=== PATIENT | female | born 1950 | race Caucasian/White ===

== ENCOUNTER 2017-11-26 12:19 | Emergency (ER) | payer OTHER, MEDICARE ==
[2017-11-26 12:30] VITALS: BP 141/88; PULSE 74; TEMP 98.1; O2SAT 95
--- NOTE | 2017-11-26 12:52 | C.PDOC ---
Patient is a 67 year old female with past medical history of HTN, HLD and hypothyroidism, who presents to the ED with complaints of left shoulder pain that started approximately a week ago. Patient notes that the pain starts from her neck and into her left upper arm. Patient denies decrease in range of motion but admits to mild numbness at the left epicondyle region. Patient denies chest pain, SOB, palpitations, fever, chills, nausea, stiff neck or trauma. (Kristen Morgan) <Tl Linares M - Last Filed: 11/26/17 13:42> History Per: Patient History/Exam Limitations: no limitations Onset/Duration Of Symptoms: Days Severity: Moderate Pain Scale Rating Of: 4 Location: Left upper arm <Kristen Morgan - Last Filed: 11/26/17 14:07> Time Seen by Provider: 11/26/17 12:36 Chief Complaint (Nursing): Upper Extremity Problem/Injury Past Medical History - Medical History PMH: HTN, Hypercholesterolemia, Hypothyroidism Family History: States: No Known Family Hx - Social History Hx Tobacco Use: No Hx Alcohol Use: Yes Hx Substance Use: No - Immunization History Hx Tetanus Toxoid Vaccination: No Hx Influenza Vaccination: Yes Hx Pneumococcal Vaccination: No <Kristen Morgan - Last Filed: 11/26/17 14:07> Vital Signs: Last Vital Signs Temp 98.1 F 11/26/17 12:26 Pulse 74 11/26/17 12:26 Resp 20 11/26/17 13:51 BP 141/88 11/26/17 12:26 Pulse Ox 95 11/26/17 13:25 Review Of Systems Constitutional: Negative for: Fever, Chills, Weakness Cardiovascular: Negative for: Chest Pain, Palpitations, Orthopnea Respiratory: Negative for: Cough, Shortness of Breath Gastrointestinal: Negative for: Nausea, Vomiting, Abdominal Pain, Diarrhea, Constipation Musculoskeletal: Positive for: Neck Pain, Shoulder Pain, Arm Pain Skin: Negative for: Rash, Lesions Neurological: Positive for: Weakness (Mild left arm weakness ), Numbness ( Numbness located at the left epicondyle ). Negative for: Confusion, Dizziness <Kristen Morgan - Last Filed: 11/26/17 14:07> Physical Exam - Physical Exam Appears: No Acute Distress Skin: Normal Color Head: Atraumatic, Normacephalic Teeth: Normal Dentition Cardiovascular: Rhythm Regular, No Murmur Respiratory: Normal Breath Sounds, No Decreased Breath Sounds, No Stridor, No Wheezing Gastrointestinal/Abdominal: Normal Exam, Bowel Sounds, Soft, No Tenderness, No Organomegaly, No Mass, No Rebound Extremity: Normal ROM, No Pedal Edema, No Swelling Extremity: Bilateral: Atraumatic, Normal ROM Pulses: Left Radial: Normal Neurological/Psych: Oriented x3, Normal Speech, Normal Cognition <EddieNathaliearcenio Brando - Last Filed: 11/26/17 14:07> ED Course And Treatment - Laboratory Results Lab Interpretation: No Acute Changes O2 Sat by Pulse Oximetry: 95 <Kristen Morgan Brando - Last Filed: 11/26/17 14:07> Medical Decision Making <Tl Linares - Last Filed: 11/26/17 13:42> <Kristen Morgna - Last Filed: 11/26/17 14:07> Medical Decision Making: cervical and shoulder xrays - preliminary read as no fracture, no dislocation sling applied pain medication for home (+) left paracervical tenderness and left anterior shoulder, tenderness, nv intact, no swelling, no cellulitic component, no cp, no sob, (+) FROM with pain illicited. (Tl Linares) Disposition Counseled Patient/Family Regarding: Studies Performed, Diagnosis, Need For Followup - Disposition Disposition Time: 13:41 <Tl Linares - Last Filed: 11/26/17 13:42> <Kristen Morgan - Last Filed: 11/26/17 14:07> - Disposition Referrals: Mali Cristina MD [Staff Provider] - Brandin Zayas MD [Staff Provider] - Disposition: HOME/ ROUTINE Condition: STABLE Additional Instructions: follow up with your doctor or medical clinic in 2 days follow up with pain management use sling as needed for comfort call to make an appointment take medications as prescribed return to hospital if symptoms worsens or progress Prescriptions: Acetaminophen/Codeine [Tylenol/Codeine 300 MG/30 MG] 1 tab PO Q6H PRN #12 tab PRN Reason: Pain, Severe (8-10) Instructions: Radiculopathy (DC) Forms: [employer] (Portuguese), General Discharge Instructions - Clinical Impression Clinical Impression: Cervical radiculopathy
[2017-11-26 13:52] VITALS: RESP 20
--- NOTE | 2017-11-26 14:00 | RAD ---
PROCEDURE: Cervical Spine Radiographs. HISTORY: Pain. COMPARISON: None. FINDINGS: BONES: The vertebral bodies are maintained in height. Normal alignment is maintained. The atlantoaxial articulation and odontoid process are intact. DISC SPACES: There is narrowing of the C5-6 and C6-7 intervertebral disc spaces consistent degenerative disc disease. There is mild narrowing of the C4-5 intervertebral disc space. The remaining intervertebral disc spaces are maintained in height. SOFT TISSUES: Normal. No prevertebral soft tissue swelling. OTHER FINDINGS: None. IMPRESSION: Degenerative disc disease C4-5 through C6-7. No fracture/ dislocation.
--- NOTE | 2017-11-26 14:37 | RAD ---
PROCEDURE: Radiographs of the Left Shoulder HISTORY: Left arm pain COMPARISON: No prior. FINDINGS: BONES: No acute fracture. JOINTS: Unremarkable. SOFT TISSUES: Normal. OTHER FINDINGS: None. IMPRESSION: No demonstrated fracture or dislocation.
--- NOTE | 2017-11-28 08:02 | CARD ---
APPROVED REPORT EKG Measurement Heart [id number] <Conclusion> Sinus rhythm with marked sinus arrhythmia Otherwise normal ECG
== END 2017-11-26 13:51 | disposition home or self-care (01) ==
LOC: C.ER 12:19
DX: M54.12 Radiculopathy, cervical region (principal); I10 Essential (primary) hypertension

== ENCOUNTER 2017-12-15 05:48 | Day surgery (SDC) | payer OTHER, MEDICARE ==
[2017-12-01 08:10] VITALS: BMI 27.6
[2017-12-15] MEDS ORDERED: Bupivacaine 0.5% Inj(30mL) IJ ONE (07:37)
[2017-12-15] MEDS ORDERED: Midazolam 2 MG/2 ML VIAL ONE (08:15)
[2017-12-15] MEDS ORDERED: Propofol 10 mg/ml Inj (20 ML) ONE (08:15)
[2017-12-15] MEDS: ceFAZolin 1 gm in NS 2 GM/200 ML BAG IVPB ONE ×2 (08:20→09:28)
[2017-12-15] MEDS ORDERED: ePHEDrine 50 mg/ml Inj ONE (09:05)
[2017-12-15] MEDS ORDERED: Dexamethasone 4 mg/1 ml ONE (09:57)
[2017-12-15] MEDS ORDERED: Morphine 4 MG/ML VIAL IVP PRN (10:24)
--- NOTE | 2017-12-15 10:24 | PCM.SURG1 ---
Surgeon's Initial Post Op Note - Surgeon's Notes Surgeon: Dr. Breezy RiberaDPM Manager Med Surg: Dr. Ingrid Barajas, PGY-2 Type of Anesthesia: General LMA Anesthesia Administered By: Dr. Aiden MD Pre-Operative Diagnosis: 1) Right foot hallux limitus. 2) Bilateral dorsal midfoot exostosis Operative Findings: See dictation Post-Operative Diagnosis: 1) Right foot hallux limitus. 2) Bilateral dorsal midfoot exostosis Operation Performed: 1) Right foot cheilectomy. 2) Bilateral midfoot exostectomy Specimen/Specimens Removed: Bone, both feet Estimated Blood Loss: EBL {In ML}: 2 Blood Products Given: N/A Drains Used: No Drains Post-Op Condition: Good Date of Surgery/Procedure: 12/15/17 Time of Surgery/Procedure: 10:10
[2017-12-15] MEDS ORDERED: Oxycodone/Acetaminophen 5/325 mg Tab PO PRN (10:26)
--- NOTE | 2017-12-15 10:54 | RAD ---
PROCEDURE: Bilateral Feet Radiographs. HISTORY: s/p bilateral foot surgery COMPARISON: 11/10/2017 FINDINGS: BONES: Right Foot: No fracture. Status post bunionectomy. Left Foot: No fracture. Status post bunionectomy. JOINTS: Right Foot: Normal. No osteoarthritis. Left Foot: Normal. No osteoarthritis. SOFT TISSUES: Right Foot: Subcutaneous emphysema seen medial to the 1st MTP articulation consistent with recent surgery. Left Foot: Normal. OTHER FINDINGS: None. IMPRESSION: Status post bilateral bunionectomy.
[2017-12-15 11:41] VITALS: O2SAT 99
[2017-12-15 11:58] VITALS: BP 133/78; PULSE 71; RESP 18; TEMP 98
--- NOTE | 2017-12-17 06:25 | OP ---
PROCEDURE DATE: 12/15/2017 PRIMARY SURGEON: Breezy Ribera DPM MEDICAL EDUCATOR: Ingrid Barajas, PGY-2 TYPE OF ANESTHESIA: General LMA. ANESTHESIA ADMINISTERED BY: Dr. Wolfe. PREOPERATIVE DIAGNOSES: 1. Right foot hallux limitus. 2. Right foot metatarsus primus varus. 3. Bilateral dorsal mid foot exostoses. POSTOPERATIVE DIAGNOSES: 1. Right foot hallux limitus. 2. Right foot metatarsus primus varus. 3. Bilateral dorsal mid foot exostoses. PROCEDURES: 1. Right foot cheilectomy. 2. Bilateral mid foot exostectomy. SPECIMEN: Bilateral foot bone. INDICATIONS: The patient is a 67-year-old female with the above-stated diagnosis. The patient has exhausted all conservative treatment options provided by Dr. Ribera and is now in need of surgical intervention. The patient signed the surgical consent after careful estimation of risks, benefits, complications, and potential alternatives to the proposed surgical procedures. No guarantees were either given or implied. All patient's questions were answered to her satisfaction. PREPARATION: The patient's n.p.o. status was confirmed prior to bringing the patient to the operating room. The patient was brought into the operating room and placed on the operating room table in a supine position. A well-padded pneumatic tourniquet was applied in a supramalleolar position to both the right and left ankles which were set at 250 mmHg, to be inflated once the procedures began on the respective side. Once general anesthesia was confirmed to have been achieved, the patient's right and left foot were then prepped and draped in a usual sterile manner. Tourniquet on the right side was inflated and the procedures began. PROCEDURE #1: Right foot cheilectomy. Attention was then directed to the patient's first metatarsophalangeal joint where limited dorsiflexion range of motion was appreciated to the great toe joint with no crepitus and prominent medial bony prominence of the first metatarsal head. At this time, using a #15 blade, skin incision was made medial and parallel to the extensor hallucis longus tendon. This incision was then extended down to the subcutaneous tissue layers with care being taken to identify, avoid, and retract all vital neurovascular tissues. All bleeders were cauterized and ligated as needed. This initial incision was approximately 6 cm in length. At this time, periosteal and capsular structures of the first metatarsophalangeal joint were visualized. At this time, an approximately 4 cm linear longitudinal capsular periosteal incision was made upon the dorsal medial aspect of the first metatarsophalangeal joint, extending from the base of the proximal phalanx, terminating just proximal to the head of the first metatarsal. At this time, hypertrophic medial condyle of the was appreciated. Using the sagittal saw, the successive medial prominence was resected and passed off the operative field with care being taken to preserve medial sagittal groove. At this time, dorsal exostoses were noted at the base of the proximal hallux and head of the first metatarsal along the dorsal aspects. Using a sagittal saw, these exostoses were then resected and passed off the operative field. At this time, adjacent cartilaginous margins of the first metatarsophalangeal joint were assessed and found to be excellent with no degenerative joint disease appreciated. Range of motion was then assessed and found to be greatly improved and adequate at this time. The surgical site was then flushed with copious amounts of sterile saline. Capsule and periosteal structures were reapproximated using 3-0 Vicryl. Subcutaneous tissue was reapproximated using 4-0 Vicryl. Skin was reapproximated using 4-0 nylon in a simple suture type fashion. Procedure #2: Bilateral mid foot exostectomies. The following procedures were performed in sequence between the two contralateral limbs with no deviations in sequence or procedure. Note that, upon completion of the right side which is the first side completed, tourniquet on that side was deflated. At that time, left foot was then exsanguinated. Tourniquet was inflated and the respective procedure began on that side with tourniquet being deflated upon completion. Attention was then directed to the dorsal medial aspect of the respective foot where a moderate bony prominence was noted overlying the dorsal medial aspect of the first metatarsal cuneiform joint. At this time, an approximately 2 cm long dorsal medial incision was made overlying the respective bony prominence with care being taken to avoid the extensor hallucis longus tendon body using #15 blade. This incision was extended down through subcutaneous tissue layers with care being taken to avoid and retract all vital neurovascular structures. All bleeders were cauterized and ligated as needed. At this time, periosteal structures were appreciated overlying bony prominence using a sharp dissection and a combination of free periosteal elevator. Periosteal covering overlying the bony prominence was incised and refracted medial and lateral, thus fully exposing bony prominence into the surgical field view. At this time, sagittal saw was introduced and bony prominence was resected and passed from the operative field. At this time, nonuniform bony were evaluated at the site of previous bone infection. At this time, hand rasp was used to rasp down all bony prominences to flush. Surgical site was then flushed with copious amounts of sterile saline, evaluated stability of metatarsal cuneiform joint, found no laxity or disruption of stability. Periosteal structures were then reapproximated using 4-0 Vicryl. Subcutaneous tissue was reapproximated using 4-0 Vicryl. Skin was reapproximated using 4-0 nylon. The patient's right lower extremity surgical site received a total of 10 mL of 1:1 mix of 0.5% Marcaine plain to 2% lidocaine plain in a local block type fashion. Left lower extremity received a total of 4 mL of the 1:1 mix of 0.5% Marcaine plain to 2% lidocaine plain in a local block type fashion. Right foot at the first metatarsophalangeal joint surgical site received 1 mL of dexamethasone 4 mg/mL. Surgical sites were then dressed with Xeroform, 4x4 gauze, Kerlix, and Coban. All tourniquets were deflated. Procedures were complete. POSTOPERATIVE CONDITION: The patient tolerated the anesthesia and procedure well, was escorted to the recovery room with vital signs stable and neurovascular status intact to the respective side. The patient had no complaints or complications. The patient will follow up with Dr. Ribera in his office on an outpatient basis. Ingrid Barajas DPM Breezy Ribera DPM
== END 2017-12-15 12:25 | disposition home or self-care (01) ==
LOC: C.SDS 05:48
PROVIDERS: ATTEND Podiatrist
DX: M25.775 Osteophyte, left foot (principal); M25.774 Osteophyte, right foot; M20.5X1 Other deformities of toe(s) (acquired), right foot; M89.9 Disorder of bone, unspecified; M21.10 Varus deformity, not elsewhere classified, unspecified site; M21.611 Bunion of right foot; I10 Essential (primary) hypertension; E03.9 Hypothyroidism, unspecified; E78.00 Pure hypercholesterolemia, unspecified
CPT/HCPCS: 28104; 28289; 73620; 88304; 88311; J0690; J1100; J2250; J2405; J2704; J3010

== ENCOUNTER 2018-12-10 08:22 | Outpatient (CLI) | payer MEDICARE | END 2018-12-10 08:23 | disposition home or self-care (01) | LOC: C.LAB 08:22 | DX: Z01.818 Encounter for other preprocedural examination (principal) ==